=== PATIENT | male | born 1955 | race Caucasian/White ===

== ENCOUNTER 2023-06-14 09:37 | Inpatient (IN) | payer OTHER, SELFPAY ==
[2023-06-14] VITALS (12 sets, daily range): BP systolic 91–123; BP diastolic 51–77; PULSE 84–118; RESP 16–20; TEMP 36.7–37.3; O2SAT 93–98
[2023-06-14 09:58] LABS: Glucose Point of Care 179 mg/dL (70-110)
--- NOTE | 2023-06-14 09:58 | ED_ITS ---
HPI - Nausea/Vomiting/Diarrhea General: Chief complaint: Nausea/Vomiting/Diarrhea Stated complaint: colonoscopy last week, fever, n/v Time Seen by Provider: 06/14/23 09:49 Source: patient Mode of arrival: ambulatory Limitations: no limitations History of Present Illness: Patient is a nice 68-year-old male who presents to ED today along with his for concerns of nausea, vomiting, diarrhea, generalized bodyaches, and generally feeling unwell/ill. Patient states approximately 3 days ago after finishing a meal (states he ate ribs) he began noticing fairly acute onset nausea, body aches, and feeling unwell. He states shortly after he began vomiting. He states he has continued to have nausea and emesis over the past 48 hours. Nonbloody. He states he had a few episodes of diarrhea starting yesterday. He is reporting chills but has been afebrile until this morning when he checked his temperature and it was 102.0. Patient states he really has not had much of abdominal discomforts apart from some mild occasional cramping. He does not complain of any back or flank pain. No respiratory complaints. No sick contacts. No abnormal rash or skin lesions. He has no chest pain, shortness of breath, difficulty breathing. Of note patient states he had a routine colonoscopy last week. He reports feeling fine following the procedure. Patient does have a history of bladder and prostate cancer. He states his last cystoscopy by his urologist Dr. Thom TURNER was in February 2022 and reportedly normal. MD elicited complaint: nausea, vomiting and diarrhea Onset (ago): day(s) Description of diarrhea: watery Associated nausea: Yes Associated abdominal pain: No Severity: moderate Exacerbating factors: eating Relieving factors: none Associated symtoms: Reports fatigue, malaise and nausea; Denies change in vision, chest pain, dizziness, dysuria, headache(s), palpitations or syncope Review of Systems Const: Reports: fever(s) (102 this AM), chills, body aches, fatigue and malaise Eyes: Denies: change in vision, blurry vision, photophobia, floaters or seeing flashes Card: Denies: chest pain, palpitations, irregular heart rhythm, edema, swelling of feet/ankles, lightheadedness, syncope or pre-syncope Resp: Denies: dyspnea, productive cough, non-productive cough or chest congestion GI: Reports: abdominal pain, nausea, vomiting and diarrhea : Reports: other (reports he has noticed dark urine); Denies: flank pain, difficulty urinating, dysuria, urinary frequency, urinary urgency or urinary hesitancy Musc: Denies: neck pain, back pain, extremity pain or joint pain Skin/Breast: Denies: rash Neuro: Reports: other (generalized weakness); Denies: headache(s), numbness in extremities, weakness in extremities, sensory changes or dizziness PFSH ED PFSH: Medical History (Updated 06/14/23 @ 14:25 by Usama Hamilton MD) History of bladder cancer History of prostate cancer Hypertension Surgical History (Updated 06/14/23 @ 14:25 by Usama Hamilton MD) History of bladder surgery History of prostatectomy Family History (Updated 06/14/23 @ 14:25 by Usama Hamilton MD) Mother Old age Father Prostate cancer Social History (Updated 06/14/23 @ 14:25 by Usama Hamilton MD) Smoking and tobacco status: never smoked Alcohol intake: never Substance/Drug Use: never Physical Exam Const: COMMON NORMALS: no acute distress, patient oriented x3, no limitations, alert and well nourished GENERAL APPEARANCE: cooperative and ill appearing (mildly) ORIENTATION/CONSCIOUSNESS: Yes awake, Yes oriented to person, Yes oriented to place and Yes oriented to time OTHER: sweating HENMT: COMMON NORMALS: normocephalic and atraumatic HEAD & SCALP: normal to inspection, normocephalic and atraumatic MOUTH: Normal oral and palatal mucosa present, lip normal and tongue normal THROAT: posterior oropharynx normal Eye: COMMON NORMALS: no scleral icterus GENERAL EYE: appearance normal, both eyes and all related structures Neck/C-Spine: COMMON NORMALS: full ROM, no lymphadenopathy, supple, no meningeal signs and no JVD Resp: COMMON NORMALS: normal respiratory effort and clear to auscultation bilaterally AUSCULTATION: clear to auscultation bilaterally Cardio: COMMON NORMALS: no JVD, regular rate and regular rhythm RATE: regular rate RHYTHM: regular rhythm GI: COMMON NORMALS: Normal to inspection, nondistended, normoactive bowel so unds present, Soft to palpation, non-tender, No hepatosplenomegaly present and no masses PALPATION: Yes Soft to palpation and Yes No hepatosplenomegaly present : COMMON NORMALS: Yes no CVA tenderness BLADDER/KIDNEY EXAM: Yes no CVA tenderness Back/Pelvis: COMMON NORMALS: no CVA tenderness, thoracic and lumbar spine normal to inspection, no thoracic nor lumbar tenderness and thoraco-lumbar ROM normal Extremity: COMMON NORMALS: normal to inspection, capillary refill normal, no joint enlargement, no clubbing, cyanosis or edema, no calf tenderness and no pedal edema GENERAL: Yes normal exam except as noted Neuro: SHERRI COMA SCALE: document GCS findings Sherri coma scale eye opening: Spontaneous [place] coma scale verbal response: Orientated Sherri coma scale motor response: Obey commands Sherri coma scale total score: 15 COMMON NORMALS: patient oriented x3, moves all extremities, no focal motor deficits and no sensory deficits noted SENSORIUM/ORIENTATION: Yes alert, Yes oriented to person, Yes oriented to place and Yes oriented to time MENINGEAL SIGNS: Yes no meningeal signs Skin: COMMON NORMALS: no rashes or lesions noted GENERAL SKIN EXAM: no rashes or lesions noted Course 2 Consultations: Consultation #1: Dr. Hamilton-recommends urology consult; spoke to him following consult with Dr. Nunez and he will accept patient Consultation #2: Dr. Nunez-he stated there was nothing from a urologic standpoint to do other than IV antibiotics and felt he could be managed here; he states patient's urologist, Dr. Tomas, will follow-up with him following discharge Vital Signs: Vital signs: Vital Signs Temperature 99.2 F 06/14/23 09:59 Pulse Rate 87 06/14/23 13:06 Respiratory Rate 16 06/14/23 13:06 Blood Pressure 116/69 06/14/23 13:06 Pulse Oximetry 95 06/14/23 13:06 Oxygen Delivery Me thod Room Air 06/14/23 13:06 MDM - Nausea/Vomiting/Diarrhea Medical Decision Making Patient is a very nice 68-year-old male who presented to the ED today with a complaint of nausea, vomiting, diarrhea, dysuria, generally feeling ill, and fevers of 102 starting this morning. Patient arrived hypotensive with a BP of 91/51 and tachycardic with a heart rate of 118. Low-grade fever of 99.2 noted upon arrival. Blood work shows a white count of 10.5 with an elevated lactate at 2.4. Repeat lactate is normal at 1.0. CMP showing minor metabolic abnormalities. He has very mild elevations to his BUN/Cr at 40/1.3-we do not have a baseline. UA showing overwhelming evidence of cystitis. CT scan obtained due to significant systemic symptoms. CT scan showing gas in his urinary bladder and right renal collecting system consistent with an emphysematous cystitis/pyelitis. Patient was started on IV ceftriaxone and meropenem. Patient is a diabetic. DKA has effectively been ruled out. I have consulted with a Dr. Nunez (at the request of Dr. Hamilton) who is on-call for Dr. Tomas who is patient's urologist at [facility] stated there was nothing from a urologic standpoint at this time and felt he could be managed here with IV a ntibiotics. Dr. Hamilton will admit the patient. Lab Data 06/14/23 10:05 06/14/23 10:05 Radiology Impressions Abdomen/Pelvis CT 06/14/23 11:50 IMPRESSION: 1. No bowel obstruction or diverticulitis. 2. Bilateral nephrolithiasis without urinary tract obstruction. 3. Gas in the urinary bladder and right renal collecting system which can be due to infection or recent instrumentation. 4. Cholelithiasis without acute cholecystitis. 5. Indeterminate right lobe of liver lesion. Laboratory Results WBC 10.5 10^3/uL (4.0-10.0) H 06/14/23 10:05 RBC 5.02 10^6/uL (4.1-5.3) 06/14/23 10:05 Hgb 15.7 g/dL (11.7-16.6) 06/14/23 10:05 Hct 45.6 % (42.0-52.0) 06/14/23 10:05 MCV 90.8 fl (80-94) 06/14/23 10:05 MCH 31.3 pg (28.0-34.0) 06/14/23 10:05 MCHC 34.4 g/dL (30.0-36.0) 06/14/23 10:05 RDW 12.9 % (12.1-15.1) 06/14/23 10:05 Plt Count 176 10^3/cmm (130-400) 06/14/23 10:05 MPV 9.8 fL (7.4-10.4) 06/14/23 10:05 Neut % (Auto) 93.9 % 06/14/23 10:05 Lymph % (Auto) 4.0 % 06/14/23 10:05 Harrison % (Auto) 1.4 % 06/14/23 10:05 Eos % (Auto) 0.1 % 06/14/23 10:05 Baso % (Auto) 0.3 % 06/14/23 10:05 Neut # (Auto) 9.87 10^3/uL (1.8-7.7) H 06/14/23 10:05 Lymph # (Auto) 0.4 10^3/uL (0.8-4.8) L 06/14/23 10:05 Harrison # (Auto) 0.2 10^3/uL (0.2-0.9) 06/14/23 10:05 Eos # (Auto) 0.0 10^3/uL (0.0-0.8) 06/14/23 10:05 Baso # (Auto) 0.0 10^3/uL (0.0-0.1) 06/14/23 10:05 Nucleated RBC % (auto) 0 % 06/14/23 10:05 Nucleated RBCs # 0.0 /100WBC 06/14/23 10:05 Specimen Type Arterial 06/14/23 13:11 Sample Site Brachial, left 06/14/23 13:11 ABG pH 7.36 (7.35-7.45) 06/14/23 13:11 ABG pCO2 36.1 mmHg (35-45) 06/14/23 13:11 ABG pO2 69.9 mmHg (80.0-100.0) L 06/14/23 13:11 ABG HCO3 20.4 mmol/L (22-26) L 06/14/23 13:11 ABG O2 Saturation 93.3 06/14/23 13:11 ABG Base Excess -4.3 mmol/L (-2.0-2.0) L 06/14/23 13:11 Thom Test Pos 06/14/23 13:11 A-a O2 Gradient 4.4 mmHg (5-10) L 06/14/23 13:11 Hematocrit 47.4 % (42-52) 06/14/23 13:11 Hgb O2 Saturation 92.3 % (95-100) L 06/14/23 13:11 Carboxyhemoglobin 0.8 %THgb (0.4-20.1) 06/14/23 13:11 Methemoglobin 0.3 % (0.4-1.5) L 06/14/23 13:11 Total Hemoglobin 15.5 g/dL (14-18) 06/14/23 13:11 Sodium 135.0 mmol/L (131-143) 06/14/23 13:11 Potassium 3.3 mmol/L (3.5-5.0) L 06/14/23 13:11 Glucose 134.0 mg/dL (70-115) H 06/14/23 13:11 Ionized Calcium 1.2 mmol/L (1.1-1.4) 06/14/23 13:11 O2 Delivery Device Nc 06/14/23 13:11 O2 Liters/Min 0.5 % 06/14/23 13:11 Medical Center Director ID Cak 06/14/23 13:11 Sodium 132 mmol/L (136-145) L 06/14/23 10:05 Potassium 3.6 mmol/L (3.5-5.1) 06/14/23 10:05 Chloride 94 mmol/L (98-107) L 06/14/23 10:05 Carbon Dioxide 21 mmol/L (22-29) L 06/14/23 10:05 Anion Gap 20.6 (5-19) H 06/14/23 10:05 BUN 40 mg/dL (8-23) H 06/14/23 10:05 Creatinine 1.3 mg/dL (0.7-1.2) H 06/14/23 10:05 GFR Calculation 55.1 mL/min (90-130) L 06/14/23 10:05 Glucose 178 mg/dL (65-115) H 06/14/23 10:05 POC Glucose 179 mg/dL (70-110) H 06/14/23 09:55 Calculated Osmolality 288 mOsm/kg (285-295) 06/14/23 10:05 Lactic Acid 2.4 mmol/L (0.5-2.2) H 06/14/23 10:05 Lactic Acid (Sepsis) 1.0 mmol/L (0.5-2.2) 06/14/23 13:08 Calcium 9.0 mg/dL (8.5-10.5) 06/14/23 10:05 Total Bilirubin 1.3 mg/dL (0.15-1.2) H 06/14/23 10:05 AST 16 U/L (0-40) 06/14/23 10:05 ALT 22 U/L (0-41) 06/14/23 10:05 Alkaline Phosphatase 61 U/L (40-130) 06/14/23 10:05 Total Protein 6.5 g/dL (6.6-8.7) L 06/14/23 10:05 Albumin 4.0 g/dL (3.5-5.2) 06/14/23 10:05 Globulin 2.5 g/dL (1.3-4.6) 06/14/23 10:05 Lipase 24 U/L (13-60) 06/14/23 10:05 Urine Color Yellow (Yellow) 06/14/23 11:12 Urine Appearance Cloudy (CLEAR) A 06/14/23 11:12 Urine pH 5 (5-7) 06/14/23 11:12 Ur Specific [place] 1.015 (1.005-1.030) 06/14/23 11:12 Urine Protein Neg (Negative) 06/14/23 11:12 Urine Glucose (UA) 4+ (Normal) H 06/14/23 11:12 Urine Ketones 1+ (Negative) H 06/14/23 11:12 Urine Blood 3+ (Negative) H 06/14/23 11:12 Urine Nitrate Positive (Negative) H 06/14/23 11:12 Urine Bilirubin Neg (Negative) 06/14/23 11:12 Urine Urobilinogen Norm mg/dL (Negative) 06/14/23 11:12 Ur Leukocyte Esterase 1+ (Negative) H 06/14/23 11:12 Urine RBC 10-15 /hpf (0-2) H 06/14/23 11:12 Urine WBC 55-80 /hpf (0-5) H 06/14/23 11:12 Ur Squamous Epith Cells 0-4 /hpf (0-5) H 06/14/23 11:12 Amorphous Sediment Not Reportable 06/14/23 11:12 Urine Bacteria 3+ /hpf (NONE) H 06/14/23 11:12 Serum Ketones Negative (Negative) 06/14/23 10:05 Coronavirus 229E (PCR) Not detected (NOT DETECT) 06/14/23 10:37 Influenza Type A Ag negative (Negative) 06/14/23 10:37 Influenza Type B Ag negative (Negative) 06/14/23 10:37 SARS-CoV-2 (PCR) Not detected (NOT DETECT) 06/14/23 10:37 Discharge Plan Discharge Patient Disposition: Admitted As Inpatient Clinical Impression: Emphysematous pyelitis Condition: Stable Prescriptions: No Action pravastatin 40 mg tablet 40 mg PO .Q PM Aspir-81 81 mg Tablet,Delayed Release (Dr/Ec) 81 mg PO DAILY omeprazole 20 mg Capsule,Delayed Release(Dr/Ec) 20 mg PO DAILY lisinopril-hydrochlorothiazide 10-12.5 mg tablet 1 tab PO DAILY Rx Instructions: IN THE MORNING Miralax 17 gram/dose Powder 4 g PO DAILY metformin 500 mg Tablet Extended Release 24 Hr 1,000 mg PO DAILY [place] 3-6-9 1,200 mg Capsule 1 cap PO DAILY Jardiance 25 mg Tablet 25 mg PO DAILY turmeric 400 mg Capsule 400 mg PO DAILY Referrals: Anna Quinteros MD [Primary Care Provider] - Coding Level of Care Code ED [employer] 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
--- NOTE | 2023-06-14 10:18 | XR_ITS ---
WS: [id number] XR chest 1V portable [id number] REASON FOR EXAM: tachy, weakness FINDINGS: The heart and mediastinum are within normal limits. Calcified granulomatous disease laterally. No focal or diffuse pulmonary parenchymal or pleural abnormality. Bony thorax intact without significant focal abnormality. IMPRESSION: No acute chest abnormality.
[2023-06-14 10:33] LABS: Basophils % 0.3 %; Eosinophils % 0.1 %; Hematocrit 45.6 % (42.0-52.0); Hemoglobin 15.7 g/dL (11.7-16.6); Lymphocytes # 0.4 10^3/uL (0.8-4.8); Mean Corpuscular HGB Conc 34.4 g/dL (30.0-36.0); Mean Corpuscular Hemoglobin 31.3 pg (28.0-34.0); Mean Corpuscular Volume 90.8 fl (80-94); Mean Platelet Volume 9.8 fL (7.4-10.4); Monocytes # 0.2 10^3/uL (0.2-0.9); Monocytes % 1.4 %; Neutrophils # 9.87 10^3/uL (1.8-7.7); Neutrophils % 93.9 %; Nucleated Red Blood Cells % 0 %; Platelet Count 176 10^3/cmm (130-400); Red Blood Count 5.02 10^6/uL (4.1-5.3); Red Cell Distribution Width 12.9 % (12.1-15.1); White Blood Count 10.5 10^3/uL (4.0-10.0)
[2023-06-14] MEDS: ondansetron 2 mg/ML SDV 2 mL 4 MG IVP (10:39)
[2023-06-14] MEDS: sodium chloride 0.9% 1,000 ML 999 ML IV ×2 (10:39→12:17)
[2023-06-14 10:44] LABS: Lactic Sepsis W/Reflex 2.4 mmol/L (0.5-2.2)
[2023-06-14 10:53] LABS: Alanine Aminotransferase 22 U/L (0-41); Alkaline Phosphatase 61 U/L (40-130); Anion Gap 20.6 (5-19); Aspartate Amino Transferase 16 U/L (0-40); Blood Urea Nitrogen 40 mg/dL (8-23); Carbon Dioxide 21 mmol/L (22-29); Chloride 94 mmol/L (98-107); Globulin 2.5 g/dL (1.3-4.6); Glomerular Filtration Rate 55.1 mL/min (90-130); Glucose 178 mg/dL (65-115); Lipase 24 U/L (13-60); Osmolality Calculated 288 mOsm/kg (285-295); Potassium 3.6 mmol/L (3.5-5.1); Sodium 132 mmol/L (136-145); Total Bilirubin 1.3 mg/dL (0.15-1.2); Total Protein 6.5 g/dL (6.6-8.7)
[2023-06-14 11:26] LABS: Add Urine Microscopic? YES; Bilirubin Urine Neg (Negative); Blood Urine 3+ (Negative); Glucose Urine UA 4+ (Normal); Ketones Urine 1+ (Negative); Leukocyte Esterase Urine 1+ (Negative); Nitrate Urine Positive (Negative); Protein Urine Neg (Negative); Specific Gravity, Urine 1.015 (1.005-1.030); Urine Appearance Cloudy (CLEAR); Urine Color Yellow (Yellow); Urobilinogen Urine Norm (Negative); pH Urine 5 (5-7)
[2023-06-14 11:32] LABS: Influenza A by IFA negative (Negative); Influenza B by IFA negative (Negative)
[2023-06-14 11:45] LABS: Add Urine Culture? Yes; Bacteria Urine 3+ /hpf; Squamous Epithelial Cell Urine 0-4 /hpf (0-5); WBC Urine 55-80 /hpf (0-5)
--- NOTE | 2023-06-14 11:50 | CTR_ITS ---
PROCEDURE INFORMATION: Exam: CT Abdomen And Pelvis Without Contrast Exam date and time: 06/14/2023 12:08 PM Age: 68 years old Clinical indication: Nausea and vomiting; Additional info: UTI, sepsis TECHNIQUE: Imaging protocol: Computed tomography of the abdomen and pelvis without contrast. Radiation optimization: All CT scans at this facility use at least one of these dose optimization techniques: automated exposure control; mA and/or kV adjustment per patient size (includes targeted exams where dose is matched to clinical indication); or iterative reconstruction. REPORTING DATA: Count of CT and Cardiac NM exams in prior 12 months: This patient has received 0 known CTs and 0 known cardiac nuclear medicine studies in the 12 months prior to the current study. COMPARISON: CR XR chest 1V portable [id number] 06/14/2023 10:22 AM RADIATION DOSE METRICS: Total DLP (mGy-cm): 820.14 FINDINGS: Coronary arteries: Calcified coronary artery atherosclerotic plaque visualized. Liver: The liver is not enlarged. Focal ill-defined 1.7 cm ill-defined lesion in the right lobe of the liver with nonspecific attenuation measurements. Gallbladder and bile ducts: There is cholelithiasis. No gallbladder wall thickening. No pericholecystic fluid or inflammation. No biliary ductal dilation. Pancreas: No pancreatic enlargement, peripancreatic inflammation, or ductal dilation. Spleen: The spleen is somewhat prominent in size but is homogeneous. Adrenal glands: Bilateral adrenal nodularity, nonspecific. Kidneys and ureters: Bilateral nephrolithiasis. No ureteral calculus. No hydronephrosis or hydroureter. There appears to be small amount of gas in the right superior renal collecting system. This may be due to infection or recent instrumentation. Stomach and bowel: No bowel obstruction or diverticulitis. Appendix: The appendix has a normal caliber. No periappendiceal inflammation. Intraperitoneal space: No ascites or pneumoperitoneum. Vasculature: No abdominal aortic aneurysm. Lymph nodes: No pathologically enlarged lymph nodes. Urinary bladder: There is gas in the urinary bladder lumen which could be due to infection or recent instrumentation. No bladder calculus. No wall thickening. Reproductive: Prior prostatectomy and bilateral pelvic lymph node dissection. Bones/joints: Multilevel degenerative changes in the lumbar spine and lower thoracic spine. Mild right hip joint degeneration. Soft tissues: Tiny umbilical hernia containing fat. CT/CT kidney stone [id number] IMPRESSION: 1. No bowel obstruction or diverticulitis. 2. Bilateral nephrolithiasis without urinary tract obstruction. 3. Gas in the urinary bladder and right renal collecting system which can be due to infection or recent instrumentation. 4. Cholelithiasis without acute cholecystitis. 5. Indeterminate right lobe of liver lesion.
[2023-06-14 12:14] LABS: Reflex Lactate Order REFLEX LACTIC ORDERD
[2023-06-14] MEDS: cefTRIAXone 1,000 MG in sodium chloride 0.9% (plus) 50 ML 100 MG IV (12:17)
[2023-06-14 13:02] LABS: Adenovirus Not Detected (NOT DETECT); Chlamydia Pneumoniae Not Detected (NOT DETECT); Coronavirus 229E,HKU1,NL63,OC4 Not Detected (NOT DETECT); Human Metapneumovirus Not Detected (NOT DETECT); Human Rhinovirus/Enterovirus Not Detected (NOT DETECT); Influenza A Not Detected (NOT DETECT); Influenza A H1 Not Detected (NOT DETECT); Influenza A H1-2009 Not Detected (NOT DETECT); Influenza A H3 Not Detected (NOT DETECT); Influenza B Not Detected (NOT DETECT); Mycoplasma Pneumoniae Not Detected (NOT DETECT); Parainfluenza Virus Type 1 Not Detected (NOT DETECT); Parainfluenza Virus Type 2 Not Detected (NOT DETECT); Parainfluenza Virus Type 3 Not Detected (NOT DETECT); Parainfluenza Virus Type 4 Not Detected (NOT DETECT); Respiratory Syncytial Virus A Not Detected (NOT DETECT); Respiratory Syncytial Virus B Not Detected (NOT DETECT); SARS-COV-2 Not Detected (NOT DETECT)
[2023-06-14 13:22] LABS: ABG PCO2 36.1 mmHg (35-45); ABG PH Result 7.36 (7.35-7.45); Alveolar-Arterial Oxygen Gradi 4.4 mmHg (5-10); Arterial Blood Gas Hematocrit 47.4 % (42-52); Base Excess ABG -4.3 mmol/L (-2.0-2.0); Blood Gas Allen Test Pos; Blood Gas LPM 0.5 %; Blood Gas Operator Identificat CAK; Blood Gas Sample Site Brachial, left; Blood Gas Sample Type Arterial; Carboxyhemoglobin 0.8 %THgb (0.4-20.1); HCO3 ABG 20.4 mmol/L (22-26); HGB O2 Sat 92.3 % (95-100); Ionized Calcium Level - ABG 1.2 mmol/L (1.1-1.4); Methemoglobin 0.3 % (0.4-1.5); Oxygen Device NC; Oxygen Saturation ABG 93.3; PO2 ABG 69.9 mmHg (80.0-100.0); Potassium Level - ABG 3.3 mmol/L (3.5-5.0); Total Hemoglobin 15.5 g/dL (14-18)
[2023-06-14] MEDS: meropenem 1,000 MG in sodium chloride 0.9% (plus) 50 ML 100 MG IV ×2 (13:35→20:24)
[2023-06-14 13:42] LABS: Ketone (Acetest) Serum Negative (Negative)
--- NOTE | 2023-06-14 14:21 | PM.HP ---
Providers/Chief Complaint Primary Care Provider: Anna Quinteros MD Chief Complaint: colonoscopy last week, fever, n/v History of Present Illness Lance Mays is a 68 year old male with a past medical history of bladder cancer status post bladder surgery, history of prostate cancer status post prostatectomy, history of hypertension, type 2 diabetes mellitus, who follows up with most of his physicians in [facility], who presents to [facility] due to fevers, chills, fatigue, malaise, dysuria, nausea for the last 48 hours. Patient reports for the last 48 hours, he had fevers, chills, fatigue, malaise, dysuria, with nausea, no flank pain, no lightheadedness, dizziness, no cough, no shortness of breath, no diarrhea denies a history of UTIs, denies a history of pyelonephritis, in the emergency room he was diagnosed with emphysematous cystitis, ER provider spoke to urologist in [facility], and [facility], who recommended that there was no surgical intervention required, no drain required, recommend antibiotic therapy, inpatient monitoring, outpatient follow-up with urology, hospitalist team was called for admission Review of Systems Const: Reports: fever(s), chills, fatigue and malaise Eyes: Denies: change in vision ENMT: Denies: throat pain Card: Denies: chest pain or palpitations Resp: Denies: dyspnea or productive cough GI: Reports: nausea; Denies: abdominal pain : Reports: difficulty urinating, dysuria and urinary frequency; Denies: flank pain Musc: Denies: neck pain or back pain Skin/Breast: Denies: rash Neuro: Denies: headache(s) or weakness in extremities Psych: Denies: anxiety Endo: Reports: polyuria Medications/Allergies Home Medications Medication Instructions Recorded Confirmed Last Taken Type aspirin 81 mg tablet,delayed 81 mg PO DAILY 06/14/23 06/14/23 06/13/23 History release empagliflozin 25 mg tablet 25 mg PO DAILY 06/14/23 06/14/23 06/13/23 History (Jardiance) fish, borage, flaxseed oils-omega 1 cap PO DAILY 06/14/23 06/14/23 06/13/23 History 3,6,9 comb no.1 1,200 mg capsule (Blanchard 3-6-9) lisinopril 10 1 tab PO DAILY 06/14/23 06/14/23 06/13/23 History mg-hydrochlorothiazide 12.5 mg tablet metformin 500 mg tablet,extended 1,000 mg PO DAILY 06/14/23 06/14/23 06/13/23 History release 24 hr omeprazole 20 mg capsule,delayed 20 mg PO DAILY 06/14/23 06/14/23 06/13/23 History release polyethylene glycol 3350 17 4 g PO DAILY 06/14/23 06/14/23 06/13/23 History gram/dose oral powder (Miralax) pravastatin 40 mg tablet 40 mg PO .Q PM 06/14/23 06/14/23 06/13/23 History turmeric 400 mg capsule 400 mg PO DAILY 06/14/23 06/14/23 06/13/23 History Allergies Allergy/AdvReac Type Severity Reaction Status Date / Time Penicillins Allergy ALGY-Difficulty Verified 06/14/23 13:09 Breathing PFSH Acute PFSH: Medical History (Updated 06/14/23 @ 14:30 by Usama Hamilton MD) History of bladder cancer History of prostate cancer Hypertension Surgical History (Updated 06/14/23 @ 14:25 by Usama Hamilton MD) History of bladder surgery History of prostatectomy Family History (Updated 06/14/23 @ 14:25 by Usama Hamilton MD) Mother Old age Father Prostate cancer Social History (Updated 06/14/23 @ 14:25 by Usama Hamilton MD) Smoking and tobacco status: never smoked Alcohol intake: never Substance/Drug Use: never Vitals/I&O/Wt Last Vital Signs Temp 99.2 F 06/14/23 09:59 Pulse 87 06/14/23 13:06 Resp 16 06/14/23 13:06 BP 116/69 06/14/23 13:06 Pulse Ox 95 06/14/23 13:06 O2 Del Method Room Air 06/14/23 13:06 Physical Exam Const: COMMON NORMALS: no acute distress and patient oriented x3 GENERAL APPEARANCE: cooperative, well kempt and well developed HENMT: COMMON NORMALS: normocephalic and Normal external nose present HEAD & SCALP: normocephalic FACE & SINUS: normal facial exam NOSE: Normal external nose present Eye: COMMON NORMALS: Equal, round and reactive pupils present, EOMs intact bilaterally, conjunctivae normal and no scleral icterus CONJUNCTIVA: Yes conjunctivae normal PUPIL: Yes Equal, round and reactive pupils present Neck/C-Spine: COMMON NORMALS: full ROM, no lymphadenopathy, no JVD, Thyroid normal and No carotid bruits THYROID: Thyroid normal Lymph: LYMPHATIC: no lymphadenopathy noted Chest: COMMONS NORMALS: normal inspection of the chest Resp: COMMON NORMALS: normal respiratory effort, No retractions, No use of accessory muscles and clear to auscultation bilaterally AUSCULTATION: clear to auscultation bilaterally Cardio: COMMON NORMALS: regular rate, regular rhythm, S1 normal heart sound present, S2 normal heart sound present, No murmurs present (Cardio) and Peripheral pulses 2+ throughout RATE: regular rate RHYTHM: regular rhythm HEART SOUNDS: S1 normal heart sound present and S2 normal heart sound present PERIPHERAL PULSES: Peripheral pulses 2+ throughout GI: COMMON NORMALS: Normal to inspection, nondistended, normoactive bowel sounds present, Soft to palpation and non-tender : BLADDER/KIDNEY EXAM: Yes no CVA tenderness Back/Pelvis: COMMON NORMALS: no CVA tenderness Extremity: COMMON NORMALS: normal to inspection, full ROM, capillary refill normal, no calf tenderness and no pedal edema Neuro: COMMON NORMALS: patient oriented x3, CN's II-XII intact bilaterally, moves all extremities, no focal motor deficits and no sensory deficits noted MENINGEAL SIGNS: Yes no meningeal signs Psych: COMMON NORMALS: mental status grossly normal, Normal thought process present, cooperative and speech normal APPEARANCE: Yes well kempt SPEECH: Yes normal speech THOUGHT PROCESS: Normal thought process present Skin: COMMON NORMALS: turgor normal and no jaundice GENERAL SKIN EXAM: turgor normal Data 06/14/23 10:05 06/14/23 10:05 Micro: Microbiology 06/14/23 10:37 Blood Culture - Preliminary Blood SPECIMEN COLLECTED 06/14/23 10:05 Blood Culture - Preliminary Blood SPECIMEN COLLECTED A&P Assessment and plan (1) Emphysematous pyelitis: (2) Type 2 diabetes mellitus: (3) UTI (urinary tract infection): (4) Emphysematous cystitis: (5) Acute kidney injury: (6) Goals of care, counseling/discussion: Plan Emphysematous cystitis, pyelitis -Will admit to general medical floors -Meropenem -Follow urine cultures, blood cultures -Procalcitonin, CRP Acute kidney injury -IV fluids Type 2 diabetes mellitus, low-dose sliding scale Dehydration, IV fluids Attestations Medical Necessity Statement*: Patient requires hospitalization hospitalization for emphysematous cystitis, pyelitis, GLENNY, inpatient, greater than 2 midnights Diagnoses Emphysematous pyelitis N12 Type 2 diabetes mellitus E11.9 UTI (urinary tract infection) N39.0 Emphysematous cystitis N30.80 Acute kidney injury N17.9 Goals of care, counseling/discussion Z71.89
[2023-06-14 14:52] LABS: Procalcitonin 74.21 ng/mL (0-0.5)
[2023-06-14 16:24] LABS: Glucose Point of Care 130 mg/dL (70-110)
[2023-06-14] MEDS: pantoprazole 40 mg SDV IVP (16:48)
[2023-06-14] MEDS: sodium chloride 0.9% 1,000 ML 75 ML IV (16:48)
[2023-06-14 17:38] LABS: Estmated Average Glucose 157; Hemoglobin A1C 7.1 % (4.0-6.0)
[2023-06-14] MEDS: atorvastatin 40 mg Tablet 20 MG PO (17:45)
[2023-06-14] MEDS: acetaminophen 325 mg Tablet 650 MG PO (20:23)
[2023-06-14 20:53] LABS: Glucose Point of Care 162 mg/dL (70-110)
[2023-06-15] VITALS (11 sets, daily range): BP systolic 92–123; BP diastolic 50–69; PULSE 72–100; RESP 17–18; TEMP 36.6–37.9; O2SAT 91–94
[2023-06-15 05:18] LABS: Basophils % 0.4 %; Eosinophils # 0.1 10^3/uL (0.0-0.8); Eosinophils % 0.4 %; Hematocrit 43.5 % (42.0-52.0); Hemoglobin 14.5 g/dL (11.7-16.6); Lymphocytes # 1.3 10^3/uL (0.8-4.8); Lymphocytes % 11.8 %; Mean Corpuscular HGB Conc 33.3 g/dL (30.0-36.0); Mean Corpuscular Hemoglobin 31.1 pg (28.0-34.0); Mean Corpuscular Volume 93.3 fl (80-94); Monocytes # 0.9 10^3/uL (0.2-0.9); Monocytes % 8.2 %; Neutrophils # 8.99 10^3/uL (1.8-7.7); Neutrophils % 78.8 %; Nucleated Red Blood Cells % 0 %; Platelet Count 157 10^3/cmm (130-400); Red Blood Count 4.66 10^6/uL (4.1-5.3); Red Cell Distribution Width 12.9 % (12.1-15.1); White Blood Count 11.4 10^3/uL (4.0-10.0)
[2023-06-15 05:42] LABS: Blood Urea Nitrogen 24 mg/dL (8-23); C Reactive Protein 161.6 mg/L (0.0-4.9); Calcium 8.5 mg/dL (8.5-10.5); Carbon Dioxide 21 mmol/L (22-29); Chloride 104 mmol/L (98-107); Glomerular Filtration Rate 96.4 mL/min (90-130); Glucose 139 mg/dL (65-115); Osmolality Calculated 292 mOsm/kg (285-295); Sodium 138 mmol/L (136-145)
[2023-06-15 05:43] LABS: Procalcitonin 36.11 ng/mL (0-0.5)
[2023-06-15] MEDS: sodium chloride 0.9% 1,000 ML 75 ML IV (05:52)
[2023-06-15] MEDS: meropenem 1,000 MG in sodium chloride 0.9% (plus) 50 ML 100 MG IV ×3 (05:52→20:04)
[2023-06-15 06:36] LABS: Glucose Point of Care 136 mg/dL (70-110)
[2023-06-15] MEDS: aspirin 81 mg EC Tablet PO (08:26)
[2023-06-15] MEDS: pantoprazole DR 40 mg Tablet PO (08:26)
--- NOTE | 2023-06-15 10:27 | PC.CHAP ---
Pastoral Care Encounter/Spiritual Assessment Type of Contact [] Declined traveling inventory associate visit [] Patient/Family/Request visit [] Outpatient visit [] Follow-up visit [] Physician referral [] Code/Alert [x] Routine visit [] Staff referral [] Actively dying [] Patient sleeping [] Family support [] [] Out of room [] Palliative care [] [x] Receiving care in room [] Pre-surgical visit [] Trauma [] Long length of stay [] ICU visit [] Other: Relational/Emotional Strength [x] Patient feels connected with others/family/visitors/staff [] Distress [] Loneliness/isolation [] Abandonment Spirituality of Patient [x] Person of Naomi [] Attends Quaker of their Naomi [x] Believes in Prayer [] Reads Bible or Mormonism materials [] There are Spiritual issues to be addressed [employer] [x] Prayer [x] Active listening [x] Non-anxious presence [x] Spiritual/emotional support [] Crisis/trauma care [x] Spiritual counseling [] Bereavement support [] Provided bereavement packet [] Provided Bible/devotional materials [] Provided toy/stuffed animal, coloring book to patient or family member [] Provided Communion [] Anointing/[place] [] Salvation [x] Completed spiritual assessment [] Other: Impact on Illness or Injury [] Angry [] Fearful [] Anxious [] Often cries [] Exhaustion [] Unable to work [] Unable to attend scientologist [] Unable to walk/stand [] Unable to read [] Unable to drive [] Unable to eat/drink [] Unable to sleep [] Unable to be with family [] Patient intubated [] Other: Summary blader infection feeling better +1 when blader is ok has a good attitude well go home Time spent with patient 10 mins
[2023-06-15 11:13] LABS: Glucose Point of Care 184 mg/dL (70-110)
[2023-06-15] MEDS: insulin lispro 100 unit/1 mL SUBCUT (11:54)
[2023-06-15] MEDS: acetaminophen 325 mg Tablet 650 MG PO (13:23)
--- NOTE | 2023-06-15 13:27 | PM.PN ---
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 they are wondering how he got it, he did have a cystoscopy back in February this potentially could have introduced infection, he tells me that he has been having some mild lower urinary tract symptoms for the last few months, and he he did not think much of them, he did have a colonoscopy about a week ago, currently no fevers, chills, no nausea no no vomiting, ambulating without significant symptomatology, he has had multiple cystoscopies for bladder cancer most recent cystoscopy did not show any recurrence, he had a prostatectomy for prostate cancer Vitals/I&O/Wt Last Vital Signs Temp 100.1 F H 06/15/23 12:51 Pulse 75 06/15/23 11:28 Resp 18 06/15/23 11:28 BP 122/66 06/15/23 11:28 Pulse Ox 94 06/15/23 11:28 O2 Del Method Room Air 06/15/23 07:09 06/14/23 06/15/23 06/15/23 22:59 06:59 14:59 Intake Total 2270 / 2270 1510 / 3780 360 / 360 Balance 2270 / 2270 1510 / 3780 360 / 360 Weight last 48 hrs Weight 105.233 kg Physical Exam Const: COMMON NORMALS: no acute distress and patient oriented x3 Resp: COMMON NORMALS: normal respiratory effort, No retractions, No use of accessory muscles and clear to auscultation bilaterally AUSCULTATION: clear to auscultation bilaterally Cardio: COMMON NORMALS: regular rate, regular rhythm, S1 normal heart sound present and S2 normal heart sound present RATE: regular rate RHYTHM: regular rhythm HEART SOUNDS: S1 normal heart sound present and S2 normal heart sound present GI: COMMON NORMALS: Normal to inspection, nondistended, normoactive bowel sounds present and non-tender Extremity: COMMON NORMALS: no pedal edema Neuro: COMMON NORMALS: patient oriented x3 Psych: COMMON NORMALS: mental status grossly normal Data 06/15/23 04:52 06/15/23 04:52 Micro: Microbiology 06/14/23 11:12 Urine Culture - Preliminary Urine,Clean Catch Gram Negative Rods 06/14/23 10:37 Blood Culture - Preliminary Blood NEGATIVE TO DATE 06/14/23 10:05 Blood Culture - Preliminary Blood NEGATIVE TO DATE A&P Assessment and plan (1) Emphysematous pyelitis: (2) Type 2 diabetes mellitus: (3) UTI (urinary tract infection): (4) Emphysematous cystitis: (5) Acute kidney injury: (6) Goals of care, counseling/discussion: Plan Emphysematous cystitis, pyelitis -Procalcitonin 36, CRP 161 -Will admit to general medical floors -Meropenem -Follow urine cultures, blood cultures -Procalcitonin, CRP Acute kidney injury, resolving -Creatinine was 0.8 Type 2 diabetes mellitus, low-dose sliding scale Dehydration, IV fluids Follow urine cultures, continue meropenem, slowdown IV fluids, up out of bed,\ Full code Lovenox for DVT prophylaxis Spoke to patient in detail, spoke to in length, spoke to nursing staff, Attestations Medical Necessity Statement*: Patient requires hospitalization for UTI, emphysematous cystitis with GLENNY with dehydration and High Time for a total of 60 minutes, includes reviewing past or interval history, examining/interviewing patient, placing orders, counseling patient/family/other support, updating patient/family/other support, discussing plan of care with staff, communicating with other healthcare providers, documenting encounter and coordinating care Diagnoses Emphysematous pyelitis N12 Type 2 diabetes mellitus E11.9 UTI (urinary tract infection) N39.0 Emphysematous cystitis N30.80 Acute kidney injury N17.9 Goals of care, counseling/discussion Z71.89
[2023-06-15] MEDS: pantoprazole 40 mg SDV IVP (15:49)
[2023-06-15] MEDS: TRAMadol 50 mg Tablet PO ×2 (15:49→22:08)
[2023-06-15 17:27] LABS: Glucose Point of Care 147 mg/dL (70-110)
[2023-06-15] MEDS: atorvastatin 40 mg Tablet 20 MG PO (19:01)
[2023-06-15 20:52] LABS: Glucose Point of Care 191 mg/dL (70-110)
[2023-06-15] MEDS: ondansetron 2 mg/ML SDV 2 mL 4 MG IVP (23:33)
[2023-06-16] VITALS (7 sets, daily range): BP systolic 110–118; BP diastolic 63–72; PULSE 58–89; RESP 16–17; TEMP 36.5–38; O2SAT 92–95
[2023-06-16] MEDS: meropenem 1,000 MG in sodium chloride 0.9% (plus) 50 ML 100 MG IV ×2 (05:13→13:15)
[2023-06-16 05:23] LABS: Basophils % 0.3 %; Eosinophils % 0.1 %; Hematocrit 40.6 % (42.0-52.0); Lymphocytes # 1.5 10^3/uL (0.8-4.8); Lymphocytes % 13.6 %; Mean Corpuscular HGB Conc 34.5 g/dL (30.0-36.0); Mean Corpuscular Hemoglobin 31.5 pg (28.0-34.0); Mean Corpuscular Volume 91.4 fl (80-94); Mean Platelet Volume 9.9 fL (7.4-10.4); Monocytes % 8.7 %; Neutrophils # 8.49 10^3/uL (1.8-7.7); Neutrophils % 76.9 %; Nucleated Red Blood Cells % 0 %; Platelet Count 147 10^3/cmm (130-400); Red Blood Count 4.44 10^6/uL (4.1-5.3); Red Cell Distribution Width 12.6 % (12.1-15.1)
[2023-06-16 05:55] LABS: Anion Gap 17.9 (5-19); Blood Urea Nitrogen 15 mg/dL (8-23); C Reactive Protein 156.9 mg/L (0.0-4.9); Calcium 8.5 mg/dL (8.5-10.5); Carbon Dioxide 22 mmol/L (22-29); Chloride 99 mmol/L (98-107); Glomerular Filtration Rate 134.4 mL/min (90-130); Glucose 148 mg/dL (65-115); Osmolality Calculated 284 mOsm/kg (285-295); Potassium 3.9 mmol/L (3.5-5.1); Sodium 135 mmol/L (136-145)
[2023-06-16 06:01] LABS: Procalcitonin 13.27 ng/mL (0-0.5)
[2023-06-16 06:34] LABS: Glucose Point of Care 151 mg/dL (70-110)
[2023-06-16] MEDS: lisinopril 10 mg Tablet PO (08:13)
[2023-06-16] MEDS: pantoprazole DR 40 mg Tablet PO (08:13)
[2023-06-16] MEDS: hydroCHLOROthiazide 25 mg Tablet 12.5 MG PO (08:13)
[2023-06-16] MEDS: aspirin 81 mg EC Tablet PO (08:13)
[2023-06-16] MEDS: sodium chloride 0.9% 1,000 ML 50 ML IV (08:14)
[2023-06-16 11:25] LABS: Glucose Point of Care 139 mg/dL (70-110)
[2023-06-16 16:50] LABS: Glucose Point of Care 219 mg/dL (70-110)
[2023-06-16] MEDS: atorvastatin 40 mg Tablet 20 MG PO (17:22)
[2023-06-16] MEDS: insulin lispro 100 unit/1 mL SUBCUT (17:23)
--- NOTE | 2023-06-16 17:57 | P.PN_ITS ---
Subjective Subjective: Patient was seen this morning, he tells me that yesterday afternoon he had episode of fevers, and feeling unwell, currently afebrile, no nausea, vomiting Vitals/I&O/Wt Last Vital Signs Temp 98.3 F 06/16/23 15:26 Pulse 58 L 06/16/23 15:26 Resp 16 06/16/23 15:26 BP 111/69 06/16/23 15:26 Pulse Ox 94 06/16/23 15:26 O2 Del Method Room Air 06/16/23 15:26 06/16/23 06/16/23 06/16/23 06:59 14:59 22:59 Intake Total 500 / 2440 1010 / 1010 800 / 1810 Balance 500 / 2440 1010 / 1010 800 / 1810 Weight last 48 hrs Weight 105.233 kg Physical Exam Const: COMMON NORMALS: no acute distress and patient oriented x3 Resp: COMMON NORMALS: normal respiratory effort, No retractions, No use of accessory muscles and clear to auscultation bilaterally AUSCULTATION: clear to auscultation bilaterally Cardio: COMMON NORMALS: regular rate, regular rhythm, S1 normal heart sound present and S2 normal heart sound present RATE: regular rate RHYTHM: regular rhythm HEART SOUNDS: S1 normal heart sound present and S2 normal heart sound present GI: COMMON NORMALS: Normal to inspection, nondistended, normoactive bowel so unds present and non-tender Extremity: COMMON NORMALS: no pedal edema Neuro: COMMON NORMALS: patient oriented x3 Psych: COMMON NORMALS: mental status grossly normal Data 06/16/23 05:04 06/16/23 05:04 Micro: Microbiology 06/16/23 08:47 Blood Culture - Preliminary Blood SPECIMEN COLLECTED 06/16/23 08:47 Blood Culture - Preliminary Blood SPECIMEN COLLECTED 06/14/23 11:12 Urine Culture - Final Urine,Clean Catch Escherichia coli 06/14/23 10:05 Blood Culture - Preliminary Blood A&P Assessment and plan (1) Emphysematous pyelitis: (2) Type 2 diabetes mellitus: (3) UTI (urinary tract infection): (4) Emphysematous cystitis: (5) Acute kidney injury: (6) Goals of care, counseling/discussion: (7) Gram-negative bacteremia: Plan Emphysematous cystitis, pyelitis -Procalcitonin 36, CRP 161 -Will admit to general medical floors -De-escalate off meropenem to ciprofloxacin IV ? Urine cultures positive for E. coli, pansensitive -Follow urine cultures, blood cultures -Procalcitonin, CRP Gram-negative bacteremia, 1 out of 4 blood cultures positive for gram- negative's, will await identification, continue ciprofloxacin for now Acute kidney injury, resolving -Creatinine was 0.8 Type 2 diabetes mellitus, low-dose sliding scale Dehydration, IV fluids Follow urine cultures, continue meropenem, slowdown IV fluids, up out of bed,\ Full code Lovenox for DVT prophylaxis Spoke to patient in detail, spoke to in length, spoke to nursing staff, Attestations Medical Necessity Statement*: Patient requires hospitalization for complicated cystitis, pyelitis, emphysematous cystitis, with gram-negative bacteremia requiring IV antibiotics Diagnoses Emphysematous pyelitis N12 Type 2 diabetes mellitus E11.9 UTI (urinary tract infection) N39.0 Emphysematous cystitis N30.80 Acute kidney injury N17.9 Goals of care, counseling/discussion Z71.89 Gram-negative bacteremia R78.81
[2023-06-16] MEDS: TRAMadol 50 mg Tablet PO (18:10)
[2023-06-16 21:25] LABS: Glucose Point of Care 148 mg/dL (70-110)
[2023-06-17] VITALS: BP 114/71; PULSE 71; RESP 16; TEMP 36.4; O2SAT 95
[2023-06-17 03:43] VITALS: BP 100/60; PULSE 68; RESP 17; TEMP 36.6; O2SAT 94
[2023-06-17] MEDS: ciprofloxacin 400 MG/200 ML PREMIX 200 MG IV (05:14)
[2023-06-17 05:51] LABS: Basophils % 0.6 %; Eosinophils # 0.2 10^3/uL (0.0-0.8); Eosinophils % 2.8 %; Lymphocytes # 1.8 10^3/uL (0.8-4.8); Lymphocytes % 27.1 %; Mean Corpuscular HGB Conc 34.1 g/dL (30.0-36.0); Mean Corpuscular Hemoglobin 30.6 pg (28.0-34.0); Mean Corpuscular Volume 89.8 fl (80-94); Monocytes # 0.7 10^3/uL (0.2-0.9); Monocytes % 10.1 %; Neutrophils # 3.84 10^3/uL (1.8-7.7); Neutrophils % 58.6 %; Nucleated Red Blood Cells % 0 %; Platelet Count 192 10^3/cmm (130-400); Red Cell Distribution Width 12.5 % (12.1-15.1); White Blood Count 6.5 10^3/uL (4.0-10.0)
[2023-06-17 06:17] LABS: C Reactive Protein 119.9 mg/L (0.0-4.9)
[2023-06-17 06:22] LABS: Anion Gap 16.8 (5-19); Blood Urea Nitrogen 14 mg/dL (8-23); Carbon Dioxide 22 mmol/L (22-29); Chloride 101 mmol/L (98-107); Glomerular Filtration Rate 134.4 mL/min (90-130); Glucose 163 mg/dL (65-115); Osmolality Calculated 286 mOsm/kg (285-295); Potassium 3.8 mmol/L (3.5-5.1); Sodium 136 mmol/L (136-145)
[2023-06-17 06:25] LABS: Procalcitonin 7.43 ng/mL (0-0.5)
[2023-06-17 06:45] LABS: Glucose Point of Care 188 mg/dL (70-110)
[2023-06-17 07:14] VITALS: BP 120/76; PULSE 81; RESP 14; TEMP 36.6; O2SAT 93
[2023-06-17] MEDS: insulin lispro 100 unit/1 mL SUBCUT ×2 (09:05→12:27)
[2023-06-17] MEDS: hydroCHLOROthiazide 25 mg Tablet 12.5 MG PO (09:05)
[2023-06-17] MEDS: pantoprazole DR 40 mg Tablet PO (09:06)
[2023-06-17] MEDS: lisinopril 10 mg Tablet PO (09:06)
[2023-06-17] MEDS: aspirin 81 mg EC Tablet PO (09:06)
[2023-06-17 11:24] VITALS: BP 108/72; PULSE 69; RESP 16; TEMP 36.6; O2SAT 95
[2023-06-17 11:55] LABS: Glucose Point of Care 151 mg/dL (70-110)
--- NOTE | 2023-06-17 12:28 | P.DS_ITS ---
Discharge Providers Date of Admission: 06/14/23 14:08 Date of Discharge: June 17, 2023 Attending Provider at Admission: Usama Hamilton MD Attending Provider at Discharge: Usama Hamilton MD Primary Care Provider: Anna Quinteros MD Diagnoses at Discharge Discharge Diagnosis (1) Emphysematous pyelitis: Status: Acute (2) Type 2 diabetes mellitus: Status: Acute (3) UTI (urinary tract infection): Status: Acute (4) Emphysematous cystitis: Status: Acute (5) Acute kidney injury: Status: Acute (6) Goals of care, counseling/discussion: Status: Acute (7) Gram-negative bacteremia: Status: Acute Reason for Visit Reason for Visit: colonoscopy last week, fever, n/v Hospital Course Hospital Course Lance Mays is a 68 year old male with a past medical history of bladder cancer status post bladder surgery, history of prostate cancer status post prostatectomy, history of hypertension, type 2 diabetes mellitus, who follows up with most of his physicians in [facility], who presents to [facility] due to fevers, chills, fatigue, malaise, dysuria, nausea for the last 48 hours.? Patient reports for the last 48 hours, he had fevers, chills, fatigue, malaise, dysuria, with nausea, no flank pain, no lightheadedness, dizziness, no cough, no shortness of breath, no diarrhea denies a history of UTIs, denies a history of pyelonephritis, in the emergency room he was diagnosed with emphysematous cystitis, ER provider spoke to urologist in [facility], and [facility], who recommended that there was no surgical intervention required, no drain required, recommend antibiotic therapy, inpatient monitoring, outpatient follow-up with urology, hospitalist team was called for admission Patient was admitted to [facility] for Emphysematous cystitis, pyelitis, gram bacteremia, urine culture showed ecoli sensitive to ciprofloxacin, transitioned to ciprofloxacin IV, remained afebrile, overall clinically improved, 1/4 blood culture positive for gram negative, repeat blood cultures are negative so far, follow up with PMD as outpatient, if recurrent fevers go to er, see patient urologist in 1 week for consideration for cystoscopy given Physical Exam Const: COMMON NORMALS: no acute distress and patient oriented x3 Resp: COMMON NORMALS: normal respiratory effort, No retractions, No use of accessory muscles and clear to auscultation bilaterally AUSCULTATION: clear to auscultation bilaterally Cardio: COMMON NORMALS: regular rate, regular rhythm, S1 normal heart sound present and S2 normal heart sound present RATE: regular rate RHYTHM: regular rhythm HEART SOUNDS: S1 normal heart sound present and S2 normal heart sound present GI: COMMON NORMALS: Normal to inspection, nondistended, normoactive bowel sounds present and non-tender Extremity: COMMON NORMALS: no pedal edema Neuro: COMMON NORMALS: patient oriented x3 Psych: COMMON NORMALS: mental status grossly normal Discharge Data Studies Completed and Pending Completed Studies During Hospitalization Category Date Time Status CT abdomen renal stone [CT kidney stone [id number]] Stat Cat Scan 06/14/23 11:50 Completed XR chest 1V portable [id number] Urgent Exams 06/14/23 10:18 Completed Pending at discharge Category Date Time Status Blood Culture Stat Lab 06/14/23 10:05 Results Blood Culture Stat Lab 06/16/23 08:47 Results Radiology Impressions Abdomen/Pelvis CT 06/14/23 11:50 IMPRESSION: 1. No bowel obstruction or diverticulitis. 2. Bilateral nephrolithiasis without urinary tract obstruction. 3. Gas in the urinary bladder and right renal collecting system which can be due to infection or recent instrumentation. 4. Cholelithiasis without acute cholecystitis. 5. Indeterminate right lobe of liver lesion. Laboratory Results WBC 6.5 10^3/uL (4.0-10.0) 06/17/23 05:26 RBC 4.90 10^6/uL (4.1-5.3) 06/17/23 05:26 Hgb 15.0 g/dL (11.7-16.6) 06/17/23 05:26 Hct 44.0 % (42.0-52.0) 06/17/23 05:26 MCV 89.8 fl (80-94) 06/17/23 05:26 MCH 30.6 pg (28.0-34.0) 06/17/23 05:26 MCHC 34.1 g/dL (30.0-36.0) 06/17/23 05:26 RDW 12.5 % (12.1-15.1) 06/17/23 05:26 Plt Count 192 10^3/cmm (130-400) D 06/17/23 05:26 MPV 10.0 fL (7.4-10.4) 06/17/23 05:26 Neut % (Auto) 58.6 % 06/17/23 05:26 Lymph % (Auto) 27.1 % 06/17/23 05:26 Fleming % (Auto) 10.1 % 06/17/23 05:26 Eos % (Auto) 2.8 % 06/17/23 05:26 Baso % (Auto) 0.6 % 06/17/23 05:26 Neut # (Auto) 3.84 10^3/uL (1.8-7.7) 06/17/23 05:26 Lymph # (Auto) 1.8 10^3/uL (0.8-4.8) 06/17/23 05:26 Fleming # (Auto) 0.7 10^3/uL (0.2-0.9) 06/17/23 05:26 Eos # (Auto) 0.2 10^3/uL (0.0-0.8) 06/17/23 05:26 Baso # (Auto) 0.0 10^3/uL (0.0-0.1) 06/17/23 05:26 Nucleated RBC % (auto) 0 % 06/17/23 05:26 Nucleated RBCs # 0.0 /100WBC 06/17/23 05:26 Specimen Type Arterial 06/14/23 13:11 Sample Site Brachial, left 06/14/23 13:11 ABG pH 7.36 (7.35-7.45) 06/14/23 13:11 ABG pCO2 36.1 mmHg (35-45) 06/14/23 13:11 ABG pO2 69.9 mmHg (80.0-100.0) L 06/14/23 13:11 ABG HCO3 20.4 mmol/L (22-26) L 06/14/23 13:11 ABG O2 Saturation 93.3 06/14/23 13:11 ABG Base Excess -4.3 mmol/L (-2.0-2.0) L 06/14/23 13:11 Thom Test Pos 06/14/23 13:11 A-a O2 Gradient 4.4 mmHg (5-10) L 06/14/23 13:11 Hematocrit 47.4 % (42-52) 06/14/23 13:11 Hgb O2 Saturation 92.3 % (95-100) L 06/14/23 13:11 Carboxyhemoglobin 0.8 %THgb (0.4-20.1) 06/14/23 13:11 Methemoglobin 0.3 % (0.4-1.5) L 06/14/23 13:11 Total Hemoglobin 15.5 g/dL (14-18) 06/14/23 13:11 Sodium 135.0 mmol/L (131-143) 06/14/23 13:11 Potassium 3.3 mmol/L (3.5-5.0) L 06/14/23 13:11 Glucose 134.0 mg/dL (70-115) H 06/14/23 13:11 Ionized Calcium 1.2 mmol/L (1.1-1.4) 06/14/23 13:11 O2 Delivery Device Nc 06/14/23 13:11 O2 Liters/Min 0.5 % 06/14/23 13:11 Sales Service Assistant ID Cak 06/14/23 13:11 Sodium 136 mmol/L (136-145) 06/17/23 05:26 Potassium 3.8 mmol/L (3.5-5.1) 06/17/23 05:26 Chloride 101 mmol/L (98-107) 06/17/23 05:26 Carbon Dioxide 22 mmol/L (22-29) 06/17/23 05:26 Anion Gap 16.8 (5-19) 06/17/23 05:26 BUN 14 mg/dL (8-23) 06/17/23 05:26 Creatinine 0.6 mg/dL (0.7-1.2) L 06/17/23 05:26 GFR Calculation 134.4 mL/min (90-130) H 06/17/23 05:26 Glucose 163 mg/dL (65-115) H 06/17/23 05:26 POC Glucose 151 mg/dL (70-110) H 06/17/23 10:52 Estimat Average Glucose 157 06/14/23 10:05 Hemoglobin A1c 7.1 % (4.0-6.0) H 06/14/23 10:05 Calculated Osmolality 286 mOsm/kg (285-295) 06/17/23 05:26 Lactic Acid 2.4 mmol/L (0.5-2.2) H 06/14/23 10:05 Lactic Acid (Sepsis) 1.0 mmol/L (0.5-2.2) 06/14/23 13:08 Calcium 9.0 mg/dL (8.5-10.5) 06/17/23 05:26 Total Bilirubin 1.3 mg/dL (0.15-1.2) H 06/14/23 10:05 AST 16 U/L (0-40) 06/14/23 10:05 ALT 22 U/L (0-41) 06/14/23 10:05 Alkaline Phosphatase 61 U/L (40-130) 06/14/23 10:05 C-Reactive Protein 119.9 mg/L (0.0-4.9) H 06/17/23 05:26 Total Protein 6.5 g/dL (6.6-8.7) L 06/14/23 10:05 Albumin 4.0 g/dL (3.5-5.2) 06/14/23 10:05 Globulin 2.5 g/dL (1.3-4.6) 06/14/23 10:05 Lipase 24 U/L (13-60) 06/14/23 10:05 Procalcitonin 7.43 ng/mL (0-0.5) H 06/17/23 05:26 Urine Color Yellow (Yellow) 06/14/23 11:12 Urine Appearance Cloudy (CLEAR) A 06/14/23 11:12 Urine pH 5 (5-7) 06/14/23 11:12 Ur Specific [place] 1.015 (1.005-1.030) 06/14/23 11:12 Urine Protein Neg (Negative) 06/14/23 11:12 Urine Glucose (UA) 4+ (Normal) H 06/14/23 11:12 Urine Ketones 1+ (Negative) H 06/14/23 11:12 Urine Blood 3+ (Negative) H 06/14/23 11:12 Urine Nitrate Positive (Negative) H 06/14/23 11:12 Urine Bilirubin Neg (Negative) 06/14/23 11:12 Urine Urobilinogen Norm mg/dL (Negative) 06/14/23 11:12 Ur Leukocyte Esterase 1+ (Negative) H 06/14/23 11:12 Urine RBC 10-15 /hpf (0-2) H 06/14/23 11:12 Urine WBC 55-80 /hpf (0-5) H 06/14/23 11:12 Ur Squamous Epith Cells 0-4 /hpf (0-5) H 06/14/23 11:12 Amorphous Sediment Not Reportable 06/14/23 11:12 Urine Bacteria 3+ /hpf (NONE) H 06/14/23 11:12 Serum Ketones Negative (Negative) 06/14/23 10:05 Coronavirus 229E (PCR) Not detected (NOT DETECT) 06/14/23 10:37 Influenza Type A Ag negative (Negative) 06/14/23 10:37 Influenza Type B Ag negative (Negative) 06/14/23 10:37 SARS-CoV-2 (PCR) Not detected (NOT DETECT) 06/14/23 10:37 Vitals Last Vital Signs Temp 98 F 06/17/23 11:24 Pulse 69 06/17/23 11:24 Resp 16 06/17/23 11:24 BP 108/72 06/17/23 11:24 Pulse Ox 95 06/17/23 11:24 O2 Del Method Room Air 06/17/23 03:43 Discharge Plan Discharge Patient Disposition: Home Condition: Stable Prescriptions: New tramadol 50 mg tablet 50 mg PO Q12H PRN (Reason: pain) 5 Days Qty: 10 0RF ciprofloxacin HCl 500 mg tablet 500 mg PO BID 7 Days Qty: 14 0RF ondansetron 4 mg tablet,disintegrating 4 mg PO Q8H PRN (Reason: nausea and vomiting) 5 Days Qty: 15 0RF Continued pravastatin 40 mg tablet 40 mg PO .Q PM Aspir-81 81 mg Tablet,Delayed Release (Dr/Ec) 81 mg PO DAILY omeprazole 20 mg Capsule,Delayed Release(Dr/Ec) 20 mg PO DAILY lisinopril-hydrochlorothiazide 10-12.5 mg tablet 1 tab PO DAILY Rx Instructions: IN THE MORNING Miralax 17 gram/dose Powder 4 g PO DAILY metformin 500 mg Tablet Extended Release 24 Hr 1,000 mg PO DAILY Topmost 3-6-9 1,200 mg Capsule 1 cap PO DAILY Jardiance 25 mg Tablet 25 mg PO DAILY turmeric 400 mg Capsule 400 mg PO DAILY Discharge Orders: Discharge Order (Routine); Ordered 06/17/23 Ordered By: Usama Hamilton Referrals: Anna Quinteros MD [Primary Care Provider] - Discharge Diet: Cardiac Discharge Activity: Resume usual activity Patient Instructions: Opioid Safety Activity Restrictions/Additional Instructions: -please see urology in 1 week -please see primary care in 1 week -if you have fever or chill go to emergency room Discharge Attestations Time Spent in Discharge Care*: greater than 30 min Quality Metrics Clinical Quality Measures [ No reported AMI, CVA or VTE this stay] Coding Level of Care Code 21492 Total time (in minutes) for Discharge: 45 Diagnoses Emphysematous pyelitis N12 Type 2 diabetes mellitus E11.9 UTI (urinary tract infection) N39.0 Emphysematous cystitis N30.80 Acute kidney injury N17.9 Goals of care, counseling/discussion Z71.89 Gram-negative bacteremia R78.81
[2023-06-17 15:16] VITALS: BP 114/71; PULSE 67; RESP 14; TEMP 36.6; O2SAT 96
[2023-06-17 15:41] VITALS: BP 114/71; PULSE 67; RESP 14; TEMP 36.6; O2SAT 96
== END 2023-06-17 15:40 | disposition home or self-care (01) | DRG 690 ==
LOC: ER 14:29 → MEDSURG 14:57
PROVIDERS: Admitting Provider Family Medicine; Emergency Provider Physician Assistant; PCP Family Medicine; Visit Provider Family Medicine
DX: N30.80 Other cystitis without hematuria (principal); N12 Tubulo-interstitial nephritis, not specified as acute or chronic; N17.9 Acute kidney failure, unspecified; Z85.51 Personal history of malignant neoplasm of bladder; Z85.46 Personal history of malignant neoplasm of prostate; Z90.79 Acquired absence of other genital organ(s); I10 Essential (primary) hypertension; E11.9 Type 2 diabetes mellitus without complications; B96.20 Unspecified Escherichia coli [E. coli] as the cause of diseases classified elsewhere; Z79.82 Long term (current) use of aspirin; Z79.84 Long term (current) use of oral hypoglycemic drugs; E86.0 Dehydration
CPT/HCPCS: 36415; 36416; 36592; 36600; 71045; 74176; 80048; 80051; 80053; 81001; 82009; 82330; 82805; 82962; 83036; 83605; 83690; 84145; 85025; 86140; 87040; 87077; 87086; 87186; 87205; 87635; 87804; 94664; 96365; 96367; 96372; 96375; 99285; C9113; J0696; J0744; J1815; J2185; J2405; J7030

== ENCOUNTER → 2025-03-12 08:30 | Outpatient (BNVA) | payer OTHER, SELFPAY | PROVIDERS: PCP Family Medicine; Visit Provider Podiatrist Foot & Ankle Surgery | DX: M79.672 Pain in left foot (principal); M20.42 Other hammer toe(s) (acquired), left foot; L84 Corns and callosities; E11.42 Type 2 diabetes mellitus with diabetic polyneuropathy; M21.41 Flat foot [pes planus] (acquired), right foot; M21.42 Flat foot [pes planus] (acquired), left foot; L60.3 Nail dystrophy; Z79.84 Long term (current) use of oral hypoglycemic drugs | CPT/HCPCS: 73630; 99204 ==

== ENCOUNTER → 2025-06-11 08:34 | Outpatient (BNVA) | payer OTHER, SELFPAY | PROVIDERS: PCP Family Medicine; Visit Provider Podiatrist Foot & Ankle Surgery | DX: M21.41 Flat foot [pes planus] (acquired), right foot (principal); M21.42 Flat foot [pes planus] (acquired), left foot; L60.3 Nail dystrophy; M20.42 Other hammer toe(s) (acquired), left foot; E11.42 Type 2 diabetes mellitus with diabetic polyneuropathy; Z79.84 Long term (current) use of oral hypoglycemic drugs | CPT/HCPCS: 99213 ==